=== PATIENT | female | born 1945 | race Caucasian/White ===

== ENCOUNTER 2019-02-06 14:58 | Inpatient (IN) ==
[2019-02-06 15:45] LABS: ALLEN TEST YES; BE -5.4 mmoll (-3.0-3.0); BLOOD TYPE ARTERIAL; HCO3-(ACT) 20.7 mmoll (20.0-26.0); METHB 0.9 % (0.0-1.5); MODALITY VENTILATOR; O2(CT) 16.5 mL/dL (15.0-23.0); O2HB 97.3 % (95.0-99.0); PCO2(98.6) 33 mmHg (35-45); PO2(98.6) 552 mmHg (60-100); SAMPLE BLOOD; SAO2 98.9 % (95.0-100.0); SRATE 16 BPM; THB 10.9 g/dL (11.5-17.4); TVOL 500 mL; pH(98.6) 7.37 (7.35-7.45)
[2019-02-06] MEDS ORDERED: NS 1,000 ML IV ONE (16:06)
[2019-02-06] MEDS ORDERED: NS 1,000 ML ONE (16:09)
[2019-02-06 16:14] LABS: BASO# 0.07 X1000 (0.0-0.2); BASO% 0.4 % (0.0-0.8); EOS% 4.3 % (0.0-10.0); HEMATOCRIT 35.4 % (37.0-47.0); HEMOGLOBIN 11.2 g/dL (12.0-16.0); IMM GRAN# 0.04 X1000 (0.0-0.04); IMM GRAN% 0.2 % (0.0-0.5); LYMPH# 3.45 X1000 (1.2-3.4); LYMPH% 21.2 % (20.5-51.1); MCH 30.9 PG (27-31); MCHC 31.6 g/dL (33-37); MCV 97.5 FL (81-99); MONO# 1.02 X1000 (0.11-0.59); MONO% 6.3 % (1.7-9.3); NEUT# 10.98 X1000 (1.4-6.5); NEUT% 67.6 % (42.2-75.2); PLT 230 X1000 (130-400); RBC 3.63 XMIL (4.2-5.4); RDW 13.3 % (11.5-14.5); WBC 16.26 X1000 (4.8-10.8)
[2019-02-06 16:16] LABS: URINE SOURCE CATH
--- NOTE | 2019-02-06 16:17 | EKG Report ---
Test Performed on : 02/06/2019 3:25:41 PM Test Reason : Altered Mental Status Blood Pressure : / mmHG Vent. Rate : 126 BPM Atrial Rate : 127 BPM P-R Int : 000 ms QRS Dur : 080 ms QT Int : 332 ms P-R-T Axes : 000 -27 007 degrees QTc Int : 480 ms Accelerated Junctional rhythm. Nonspecific ST and T wave abnormality Abnormal ECG When compared with ECG of 19-JUL-2015 09:19, Junctional rhythm. has replaced Sinus rhythm. Vent. rate has increased BY 54 BPM Unconfirmed Result
[2019-02-06 16:18] LABS: BILIRUBIN URINE NEGATIVE (NEGATIVE); BLOOD URINE NEGATIVE (NEGATIVE); COLOR YELLOW; GLUCOSE URINE TRACE mg/dL (NEGATIVE); KETONE URINE NEGATIVE (NEGATIVE); LEUKOCYTES URINE NEGATIVE (NEGATIVE); NITRITE URINE NEGATIVE (NEGATIVE); PH URINE 8.5; PROTEIN URINE 200 mg/dL (NEGATIVE); SP GRAVITY URINE 1.012; TURBIDITY URINE CLEAR (CLEAR); UROBILINOGEN URINE NORMAL (NORMAL)
--- NOTE | 2019-02-06 16:21 | Diag Imaging Result Doc PS360 ---
EXAM: CHEST-PORTABLE HISTORY: Tube Placement and altered mental status TECHNIQUE: Single view COMPARISON: 07/19/2015 FINDINGS: There is an endotracheal tube with the tip 1 cm above the kylah. There is an additional catheter which may represent a nasogastric tube. However, this is just at the thoracic inlet and does not pass through the esophagus into the stomach. The lungs are well expanded and clear. No consolidation. No cardiomegaly. No pleural effusions identified. IMPRESSION: Endotracheal tube is above the kylah. If the other catheter is a nasogastric tube, the tip is at the thoracic inlet. Electronically signed by Eddie Ware 02/06/2019 4:18 PM
[2019-02-06 16:22] LABS: INR 1.07
[2019-02-06 16:23] LABS: UR EPITHELIAL CELLS <10 /HPF (<10); URINE BACTERIA NEGATIVE /HPF; URINE RBC <10 /HPF (<10); URINE WBC <10 /HPF (<10)
[2019-02-06 16:23] LABS: PTT 36.7 Seconds (22.3-41.8)
[2019-02-06 16:28] LABS: UR AMPHETAMINES QUAL NONE DETECTED (NONE DETECT); UR BARBITUATES QUAL NONE DETECTED (NONE DETECT); UR BENZODIAZEPIN QUAL PRESUMPTIVE POSITIVE (NONE DETECT); UR CANNABINOIDS QUAL NONE DETECTED (NONE DETECT); UR COCAINE QUAL NONE DETECTED (NONE DETECT); UR METHADONE QUAL NONE DETECTED (NONE DETECT); UR OPIATES QUAL NONE DETECTED (NONE DETECT); UR OXYCODONE QUAL NONE DETECTED (NONE DETECT); UR PCP QUAL NONE DETECTED (NONE DETECT)
[2019-02-06 16:34] LABS: ALB/GLOB RATIO 1.2; ALBUMIN 3.7 g/dL (3.5-5.0); CALCIUM 9.3 mg/dL (8.8-10.2); CREATININE 5.1 mg/dL (0.5-0.9); POTASSIUM 5.6 mmol/L (3.5-5.1); TOTAL BILIRUBIN 0.35 mg/dL (0.20-1.00); TOTAL PROTEIN 6.7 g/dL (6.3-8.3)
[2019-02-06] MEDS: LEVOPHED 8 MG in D5 1/2 NS 250 ML IV SCH (16:48)
--- NOTE | 2019-02-06 17:30 | Diag Imaging Result Doc PS360 ---
EXAM: CT HEAD W/O CONTRAST 02/06/2019 HISTORY: Head injury TECHNIQUE: This exam was performed using automated exposure control, adjustment of mA or kV according to patient size, and/or use of iterative reconstruction technique. COMMENT: There is a large intraparenchymal hematoma, probably arising from the basal ganglia region on the right although the anatomy is completely obscured. This measures over 9.7 cm in anterior posterior dimension and 7.3 cm transversely. The midline structures are displaced to the left. There is intra-abdominal ventricular blood in the fourth and third ventricles. There is likely subarachnoid blood which is even visible in the upper portion of the cervical spine. None of these findings were present on 07/19/2015. There is an endotracheal tube. There is mucus throughout the nasopharynx. There is a mucous retention cyst in the right maxillary sinus. The calvarium is intact. IMPRESSION: Massive intraparenchymal bleed on the right with extension into the subarachnoid space and ventricles. The findings were discussed with Perry Hernandez MD at 02/06/2019 5:25 PM. Electronically signed by Merritt Tariq 02/06/2019 5:27 PM
--- NOTE | 2019-02-06 23:29 | HISTORY AND PHYSICAL ---
PRIMARY CARE PHYSICIAN: Gab Armstrong MD REASON FOR ADMISSION: Found unresponsive at [facility]. HISTORY OF PRESENT ILLNESS: Ms. Lizzy Pradhan is a 73-year-old with past medical history of hypertension, spinal stenosis, restless legs syndrome, chronic kidney disease, type 2 diabetes, congestive heart failure, prior cervical cancer, who is a resident of a intermediate. She has a past medical history of 2 prior intracranial bleeds, which she recovered from and did not require any surgical intervention. The patient was brought in to the facility after she was found unresponsive in her room. The patient has a history of end-stage kidney disease and is on hemodialysis. Today, she went for dialysis but because her IV access was faulty and clotted, they had to put a stent and dialysis had to be suspended. Today, the patient was watching some Maggie production at the intermediate and she started throwing up and feeling sickly and lethargic and they took her to her room. The events that followed afterwards are not very clear, but it was found that someone discovered that she was very unresponsive and they brought her to the ER. On arrival to the ER, head CT was done and showed massive intraparenchymal bleed on the right with extension into the subarachnoid space and ventricles. Neurosurgical team was consulted and said this is inoperable and prognosis was dismal. I got most of the information from the nurse and her son, I believe, and the grandson. REVIEW OF SYSTEMS: Could not be obtained for obvious reasons. To the best of the sons knowledge, there was no antecedent or prodrome that would have made them aware of this patient's problems. SURGICAL HISTORY: Patient has had a hysterectomy, bladder tack, tonsillectomy. SOCIAL HISTORY: Per records, the patient does not drink, smoke, or use illicit drugs. She is a resident of intermediate. FAMILY HISTORY: Lung cancer in her Dad. Sister with lymphoma. Heart disease in first-degree relatives. LABORATORY DATA: White count 16,000, hemoglobin and hematocrit 11 and 35, platelets 230,000. Potassium 5.6, BUN is 61, creatinine 5.1. Glucose 213. Troponin 0.070 with normal CK. PTT is normal. UDS notable for benzodiazepines. Urinalysis: 200 protein. ABG with pH 7.37, pCO2 of 36, PO2 of 552 with bicarb of 20, and this was on FiO2 of 100%. Chest film done showed ET tube in place. Nothing else. PHYSICAL EXAMINATION: VITAL SIGNS: Blood pressure is 92/57, pulse rate 71, respiratory rate is 68, afebrile. GENERAL: She is an elderly woman who is on the ventilator, totally unresponsive. She is unresponsive to any painful stimuli. HEENT: Head is normocephalic, atraumatic. Eyes: Pupils are partially dilated, but not responsive to light. No doll's eye movement. No corneal reflex. No facial asymmetry. She has ET tube, NG tube in appropriate entry points. No central cyanosis. NECK: No JVD or thyromegaly noted. CHEST: Clear when auscultated in both lung ignacio. CARDIOVASCULAR: First and 2nd heart sounds heard. No gallops, murmurs, rubs regular. ABDOMEN: Protuberant, soft. No rigidity appreciated. No grimacing noted. Bowel sounds are hypoactive. RECTAL: Deferred. EXTREMITY: No edema, clubbing or cyanosis. Good distal pulse volumes. The patient does not withdraw to painful stimuli. SKIN: Intact. No breakdown, erythema. Skin exam is grossly normal. ASSESSMENT: 1. Intracranial bleed, i.e., intraparenchymal and subarachnoid intraventricular hemorrhage. The etiology of this cannot be ascertained, although some dialysis patients may have a arteriovenous malformations, which can cause rupture. Usually intraparenchymal bleeds are related to hypertension in most cases. 2. Comatose secondary to #1. 3. End-stage kidney disease. 4. Type 2 diabetes. 5. Hypertension. PLAN: The patient has a dismal prognosis and the family is aware. They want the patient on life support until all family members, some coming from [place] to say their goodbyes before consideration for terminal extubation. For now, we will just continue with ventilator support and pressors support. cc: MD Karan Vivar MD
--- NOTE | 2019-02-07 00:23 | PROVIDER DOCUMENTATION ---
This chart was entered by Leyla Long Scribe, acting as scribe for Perry Hernandez MD. HPI-General Adult - General Chief Complaint: Full Arrest Stated Complaint: RESPIRATORY ARREST Time Seen by Provider: 02/06/19 15:31 Source: family, EMS Allergies/Adverse Reactions: Patient Allergies Allergy/AdvReac Type Severity Reaction Status Date / Time No Known Allergies Allergy Verified 07/19/15 08:56 Home Medications: Home Medication List Medication Instructions Recorded Confirmed Last Taken Type Acetaminophen with Codeine 1 each PO Q12HR 06/23/15 07/19/15 07/18/15 08:00 History [Tylenol with Codeine #3] Carvedilol [Coreg] 6.25 mg PO BID 06/23/15 07/19/15 07/18/15 08:00 History Cholecalciferol (Vitamin D3) 50,000 unit PO DIRECTED 06/23/15 07/19/15 07/18/15 08:00 History [Vitamin D3] Doxazosin Mesylate [Cardura] 2 mg PO DAILY 06/23/15 07/19/15 07/18/15 08:00 History Fluoxetine HCl [Prozac] 20 mg PO DAILY 06/23/15 07/19/15 07/18/15 08:00 History Furosemide [Lasix] 40 mg PO DAILY 06/23/15 07/19/15 07/18/15 08:00 History Oxybutynin [Ditropan] 5 mg PO DAILY 06/23/15 07/19/15 07/18/15 08:00 History PRAVAstatin [Pravachol] 20 mg PO DAILY 06/23/15 07/19/15 07/18/15 08:00 History Tramadol [Ultram] 50 mg PO Q8HR PRN 06/23/15 07/19/15 07/18/15 08:00 History Acyclovir [Zovirax] 800 mg PO 5XDAY #25 tablet 07/16/15 07/19/15 07/18/15 08:00 Rx Promethazine [Phenergan] 25 mg PO Q6H PRN PRN #30 tablet 07/16/15 07/19/15 07/18/15 08:00 Rx Hydrocodone/Acetaminophen [[place] 1 each PO Q4-6H PRN PRN #20 tablet 07/17/15 07/19/15 07/18/15 08:00 Rx 7.5-325 Tablet] Ondansetron [Zofran Odt] 8 mg PO Q8H PRN #20 tab.pandadis 07/17/15 07/19/15 07/19/15 07:00 Rx - History of Present Illness -Gen Adult Nature of Presenting Problems: Patient is a 73 y/o female presenting to the ED today c/o respiratory arrest. EMS provides report and background information is provided by patient's granddaughter. Patient has been at [facility] after hospital admission for seizures following dialysis. Today patient went to the cafeteria at the facility for a green party and became ill. Patient had sudden onset of N/V and was taken to her room. Staff called EMS and upon return to patient, she was unresponsive. When EMS arrived to scene, they proceeded to intubate patient reporting significant emesis. EMS reports agonal respirations prior to intubation. Patient was given 1 mg Atropine in route to ER. Patient was not given Narcan. Patient was scheduled to dialyze today, however her fistula had clotted and she was sent to get a stent and did not receive dialysis as scheduled. Patient has been having seizures following dialysis over the last few months per granddaughter's report and remains postictal for 2-3 days following seizures. Patient is unresponsive upon arrival to ER. Location of Pain/Injury: reports: none Quality of Pain: reports: none Onset/Duration: reports: abrupt, 1/2 hour ago Timing: reports: still present Similar Symptoms Previously?: No Recently seen or treated by another doctor?: No Review of Systems - Adult - REVIEW OF SYSTEMS - ADULT ROS:: unobtainable per condition Constitutional: reports: see HPI Cardiovascular: reports: see HPI Respiratory: reports: see HPI Neurological: reports: see HPI Past History - Adult - PAST MEDICAL HISTORY-ADULT Review of Records: reports: Old Records Reviewed, Medications Reviewed Major Childhood Illnesses: reports: denies history Cardiovascular: reports: CHF, HTN, [place] Genitourinary: reports: other (renal dis) Endocrine/Immune: reports: Diabetes - PRIOR SURGERIES/PROCEDURES Surgical/Procedure History: reports: CABG, hysterectomy, tonsillectomy, orthopedic (extremity) - IMMUNIZATION STATUS Childhood Immunizations: See Nurse Assessment Flu Vaccine: See Nurse Assessment - FAMILY HISTORY Family History: reviewed, not pertinent Physical Exam-General - PHYSICAL EXAM-ADULT Initial Vital Signs Reviewed: Yes - CONSTITUTIONAL General Appearance: obtunded - EYES Eyes: other (nonreactive dilated pupils) - HEAD, EARS, NOSE, MOUTH & THROAT HENMT: other (dry mucous membranes, ET tube in place - 25 at the lip) - RESPIRATORY Respiratory: lungs clear, other (breath sounds equal bilaterally; ET tube in place) - CARDIOVASCULAR Cardiovascular: normal peripheral pulses, no edema, tachycardia, other (thrill audible over fistula on left upper arm) - MUSCULOSKELETAL Extremity: normal inspection, no pedal edema, normal capillary refill - SKIN Integumentary: normal color, other (skin cold, increased turgor) - NEUROLOGIC Neurologic: other (unable to assess secondary to patient's condition) - PSYCHIATRIC Psych/Mental Status: other (unable to assess secondary to patient's condition) Progress - PLAN OF CARE/RESULTS Progress/Plan/Lab Results: Orders Category Date Time Status Cardiac Monitoring DIRECTED Care 02/06/19 15:32 Active Finger Stick Blood Sugar (ED) DIRECTED Care 02/06/19 15:32 Active Oxygen Therapy- ED Nursing DIRECTED Care 02/06/19 15:32 Active Saline Loc NOW Care 02/06/19 15:32 Active CHEST-PORTABLE [RAD] Stat Exams 02/06/19 15:[address] HEAD W/O CONTRAST [CT] Stat Exams 02/06/19 15:33 Ordered ABG [RESP] Routine Lab 02/06/19 15:32 Ordered ALCOHOL BLOOD Stat Lab 02/06/19 15:32 Uncollected CBC WITH ELECTRONIC DIFF [HEME] Stat Lab 02/06/19 15:32 Uncollected CK PROFILE [SP CHEM] Stat Lab 02/06/19 15:32 Uncollected COMPREHENSIVE METABOLIC PANEL [CHEM] Stat Lab 02/06/19 15:32 Uncollected LACTATE, PLASMA [CHEM] Stat Lab 02/06/19 15:32 Uncollected PROTIME WITH INR [COAG] Stat Lab 02/06/19 15:32 Uncollected PTT [COAG] Stat Lab 02/06/19 15:32 Uncollected TROPONIN T Stat Lab 02/06/19 15:32 Uncollected URINALYSIS [URINALYSIS] Stat Lab 02/06/19 15:32 Uncollected URINE DRUG SCREEN Stat Lab 02/06/19 15:32 Uncollected Altered Mental Status Stat Oth 02/06/19 15:31 Ordered EKG [EKG] Stat Ther 02/06/19 15:32 Ordered 17:40 - discussed patient with [facility] transfer center regarding transfer and they will call back shortly. Result Diagrams: 02/06/19 15:23 02/06/19 15:23 - REASSESSMENT Reassessment #1 Time Reassessed: 16:40 Status: unchanged (Discussed condition with family including intubation and hypotension and starting medicaitons for this. Patient's POA was present and expressed that they are comfortable with keeping patient on machines for next few weeks if needed and and maintain Full Code status.) Reassessment #2 Time Reassessed: 17:35 Status: unchanged (Discussed CT findings with patient and explained need for neurosurgery consult and potential for irreversible condition. Family is tearful, though understanding and agreeable.) Reassessment #3 Status: other (Discussed the case with [facility] who viewed imaging and believe the patients hemorrhage is non-survivalble and non operable, and the patient is likley already brain . Disucssed conversation with the family and family made decision of changing patient to DNR status and making her comfortable without further interventions. The family would like to leave ET tube and BP medications on while they make other family decisions and discussed with other family members.) Reassessment #4 Status: other (Discussed case with the hospitalist who has accepted the patient.) - EKG 1 Time of EKG reading by physician:: 15:25 EKG Read and Signed by:: Perry Hernandez EKG Interpretation (*Must complete 3 of following elements*): Abnormal Rate: 126 Rhythm: Accelerated junctional rhythm [place]: normal QRS: normal [place] Interval: normal ST Wave: non-specific ST changes - XRAY 1 XRAY Study: Chest Impression: See EMR Report (EXAM: CHEST-PORTABLE HISTORY: Tube Placement and altered mental status TECHNIQUE: Single view COMPARISON: 07/19/2015 FINDINGS: There is an endotracheal tube with the tip 1 cm above the kylah. There is an additional catheter which may represent a nasogastric tube. However, this is just at the thoracic inlet and does not pass through the esophagus into the stomach. The lungs are well expanded and clear. No consolidation. No cardiomegaly. No pleural effusions identified. IMPRESSION: Endotracheal tube is above the kylah. If the other catheter is a nasogastric tube, the tip is at the thoracic inlet. Electronically signed by Eddie Ware 02/06/2019 4:18 PM 02/06/19 1618 Interpreting Physician: Eddie Ware MD Dictated Date/Time: 02/06/19 1617 cc: Perry Hernandez MD; Gab Armstrong MD) - CT/MRI 1 CT Study: Head Impression: Discussed w/Radiology, See EMR Report (EXAM: CT HEAD W/O CONTRAST 02/06/2019 HISTORY: Head injury TECHNIQUE: This exam was performed using automated exposure control, adjustment of mA or kV according to patient size, and/or use of iterative reconstruction technique. COMMENT: There is a large intraparenchymal hematoma, probably arising from the basal ganglia region on the right although the anatomy is completely obscured. This measures over 9.7 cm in anterior posterior dimension and 7.3 cm transversely. The midline structures are displaced to the left. There is intra-abdominal ventricular blood in the fourth and third ventricles. There is likely subarachnoid blood which is even visible in the upper portion of the cervical spine. None of these findings were present on 07/19/2015. There is an endotracheal tube. There is mucus throughout the nasopharynx. There is a mucous retention cyst in the right maxillary sinus. The calvarium is intact. IMPRESSION: Massive intraparenchymal bleed on the right with extension into the subarachnoid space and ventricles. The findings were discussed with Perry Hernandez MD at 02/06/2019 5:25 PM. Electronically signed by Merritt Tariq 02/06/2019 5:27 PM 02/06/19 1727 Interpreting Physician: Merritt Tariq MD Dictated Date/Time: 02/06/19 1723 cc: Perry Hernandez MD; Gab Armstrong MD) - CONSULTS/PCP/HOSPITALIST Notification #1 *Consult/PCP/Hospitalist*: Radiologist Time Discussed: 17:25 Reason/Comments: Discussed CT findings with radiologist who reports scan shows brain bleed. Departure - Departure Date of Disposition Decision: 02/07/19 Time of Disposition Decision: 00:21 DIAGNOSIS: Cerebral hemorrhage Disposition: ADMITTED INPATIENT 09 Certified Medical Emergency: Emergent Condition: Critical - Critical Care Note This patient required my direct & personal management of CC.: Yes Total Time (mins): 35 Critical Care Statement: This patient required my direct personal management to treat or rule out processes, the absence of which, could potentiallly result in sudden, clinically significant life or limb threatening deterioration. Attestation - Physician/ YAMILET Attestation Patient care was provided by Advanced Practice Provider:: No The physician spent face to face time with patient:: Yes Advanced Practice Provider documentation review:: Supervising physician onsite and consulted in the evaluation and care of this patient. The physician did have a face to face encounter with the patient. This chart was documented by the indicated scribe, (Leyla Long Scribe) and accurately reflects the services I performed and decisions made by me, Perry Hernandez MD, as attested by the provider's signature.
[2019-02-07] MEDS ORDERED: ZOFRAN IV PRN (01:13)
[2019-02-07] MEDS ORDERED: TYLENOL PO PRN (01:13)
[2019-02-07] MEDS: NS 1,000 ML IV SCH ×2 (02:24→09:03)
[2019-02-07 04:44] LABS: ALLEN TEST YES; BLOOD TYPE ARTERIAL; HCO3-(ACT) 21.9 mmoll (20.0-26.0); METHB 0.3 % (0.0-1.5); O2(CT) 9.7 mL/dL (15.0-23.0); O2HB 97.9 % (95.0-99.0); PO2(98.6) 140 mmHg (60-100); SAMPLE BLOOD; SAO2 99.2 % (95.0-100.0); SRATE 16 BPM; THB 6.8 g/dL (11.5-17.4); TVOL 500 mL
[2019-02-07 04:46] LABS: MODALITY VENTILATOR
[2019-02-07 04:47] LABS: PCO2(98.6) 19 mmHg (35-45); pH(98.6) 7.57 (7.35-7.45)
[2019-02-07] MEDS ORDERED: MORPHINE IV PRN (12:12)
[2019-02-07] MEDS ORDERED: ATIVAN IV PRN (12:13)
--- NOTE | 2019-02-07 18:41 | PROGRESS NOTE ---
DATE: 02/07/2019 SUBJECTIVE: Patient continues to be unresponsive and not breathing over the ventilator. No acute issues noted as per nursing staff overnight. OBJECTIVE: Vital Signs: Temperature 97.7 degrees, heart rate 81, respiratory rate 16, blood pressure 130/65, O2 saturation 100% on mechanical ventilator at FiO2 40%. General: A chronically ill-looking, 73-year-old, female, lying in bed in no acute distress, sedated and intubated. Cardiovascular: S1, S2 heard. No murmurs, gallops, or rubs. Regular rate and rhythm. Respiratory: Clear bilaterally to auscultation. No work of breathing or using accessory muscles. Abdomen: Soft, nontender to palpation. Bowel sounds present. No organomegaly. Extremities: No clubbing, cyanosis, or edema. Peripheral pulses present in both legs. Neurological: Patient is completely unresponsive and intubated. ASSESSMENT: 1. Intraparenchymal and subarachnoid intraventricular hemorrhage. 2. End-stage renal disease, on dialysis. 3. Diabetes mellitus type 2. 4. Hypertension. 5. Comatose secondary to intracranial bleeding. PLAN: Patient has been admitted to the hospital for intracranial bleeding. Patient has been evaluated by Neurosurgery and she is not a candidate for any procedures. At this point, plan from family is to wait for some other members to arrive and the plan is to terminally extubate soon. At this point, considering his very poor prognosis, I do not think there is any point to check labs from her because it is not going to change the prognosis. At this point, we will continue to monitor this patient closely here in the intensive care unit. cc: Doyle Chen MD
[2019-02-08] MEDS: LEVOPHED 8 MG in D5 1/2 NS 250 ML IV SCH ×2 (08:15→14:35)
[2019-02-08 16:13] VITALS: BP 71/46
--- NOTE | 2019-02-11 16:26 | DISCHARGE SUMMARY ---
ADMISSION DATE: 02/06/2019 DISCHARGE DATE: 02/08/2019 CONSULTATION: Discussion by phone with [facility]. PERTINENT STUDIES: 1. CT head showing massive intraparenchymal bleeding on the right with intraventricular hemorrhage. Discharge diagnoses: 1. Intraparenchymal and subarachnoid intraventricular hemorrhage. 2. End-stage renal disease. 3. Diabetes mellitus type 2. 4. Hypertension. 5. Coma. Exam: The patient is . Pulses absent. Pupils are fixed and dilated. Reflexes are absent. No heart or breath sounds. DISCHARGE DIET: Patient is . DISCHARGE MEDICATIONS: None. Patient . HOSPITAL COURSE: The patient with history of end-stage renal disease ,previous intracranial bleed, diabetes, hypertension. She presented after becoming suddenly unresponsive. She was found to have massive intracranial intraparenchymal and subarachnoid bleed with midline shift and bleed spilling over into the ventricles as well. The patient was intubated. After discussion with the neurosurgical team, it was felt that she was not really a surgical candidate, that her prognosis was terminal. This was discussed with the family and they desired to keep patient alive if possible until other family members could arrive. They decided to leave patient on pressors, which she was requiring to maintain blood pressure at that point, and to continue her intubated, but not pursue any kind of code if her heart were to stop. After family arrived, patient was palliatively extubated, pressors were discontinued, and patient later that day. TIME OF : 17002/08/2019. MTDD
== END 2019-02-08 17:04 | disposition expired | DRG 64 ==
LOC: SUPCPDRO → EDBD → ED 14:58 → SUATTDRO 23:18 → ICU 23:18
PROVIDERS: ATTEND Internal Medicine